=== PATIENT | male | born 1940 | race Caucasian/White ===

== ENCOUNTER → 2016-07-21 | Outpatient (CLI) | payer OTHER | LOC: BHFA 09:15 | PROVIDERS: ATTEND Internal Medicine Cardiovascular Disease | DX: I50.9 Heart failure, unspecified (principal); R06.00 Dyspnea, unspecified; R60.9 Edema, unspecified ==

== ENCOUNTER 2018-02-08 12:58 | Inpatient (IN) | payer OTHER ==
--- NOTE | 2018-02-08 13:17 | EDPHY ---
H & P Stated Complaint: SOB Time Seen by Provider: 02/08/18 13:16 HPI/ROS: CHIEF COMPLAINT: Dyspnea, increasing edema HISTORY OF PRESENT ILLNESS: The patient presents the emergency department with complaints of dyspnea and increasing edema over the past several days. The patient has a history of heart failure and COPD. He typically takes 80 mg of torsemide however has been out of the medication for the past 4 days. The patient denies fever or productive cough. He denies asymmetric calf pain or swelling. The patient denies acute chest pain. The patient is on chronic oxygen typically at 8-10. REVIEW OF SYSTEMS: A comprehensive 10 point review of systems is otherwise negative aside from elements mentioned in the history of present illness. Source: Patient Exam Limitations: No limitations - Personal History Current Tetanus/Diphtheria Vaccine: Yes Current Tetanus Diphtheria and Acellular Pertussis (TDAP): Yes - Medical/Surgical History Hx Asthma: No Hx Chronic Respiratory Disease: Yes Hx Diabetes: No Hx Cardiac Disease: No Hx Renal Disease: No Hx Cirrhosis: No Hx Alcoholism: No Hx HIV/AIDS: No Hx Splenectomy or Spleen Trauma: No Other PMH: HTN, lower back sx, COPD - Social History Smoking Status: Former smoker - Physical Exam Exam: General Appearance: Obese male, mild tachypnea Eyes: Pupils equal and round no pallor or injection ENT, Mouth: Mucous membranes moist Respiratory: Distant breath sounds bilaterally Cardiovascular: Regular rate and rhythm Gastrointestinal: Abdomen is soft and nontender, no masses, bowel sounds normal Neurological: A&O, normal motor function, normal sensory exam, normal cranial nerves Skin: Warm and dry, no rashes Musculoskeletal: Neck is supple nontender Extremities: 3+ pitting edema bilaterally Psychiatric: Patient is oriented X 3, there is no agitation Constitutional: Initial Vital Signs Heart Rate 70 02/08/18 13:06 Respiratory Rate 24 H 02/08/18 13:06 Blood Pressure 156/95 H 02/08/18 13:06 O2 Sat (%) 83 L 02/08/18 13:06 O2 Delivery Mode Oxymizer O2 (L/minute) 6 Allergies/Adverse Reactions: No Known Allergies Allergy (Unverified 04/19/14 11:26) Home Medications: Medication Instructions Recorded Aspirin [Aspirin 81mg (*)] 81 mg PO HS 04/19/14 Naproxen Sodium [Aleve 220 MG (*)] 440 mg PO DAILY PRN 04/19/14 Losartan Potassium [Cozaar 50 mg 50 mg PO DAILY 08/28/15 (*)] Multivitamins [Multivitamin (*)] 1 each PO DAILY 08/28/15 Potassium Cl [Klor-Con 20 meq (*)] 20 meq PO DAILY 08/28/15 Acetaminophen [Tylenol 325mg (*)] 650 mg PO Q4 PRN #0 tab 08/29/15 Torsemide [Demadex] 20 mg PO DAILY #30 tablet 08/29/15 Torsemide [Demadex] 50 mg PO DAILY #0 tablet 08/29/15 Anoro Ellipta 62.5-25 Mcg INH 02/08/18 Medical Decision Making - Diagnostics EKG Interpretation: EKG: Complete interpretation has been separately recorded in the [email or web address] archive. Summary impression: Sinus rhythm, rate 55 Imaging Results: Imaging Impressions Chest X-Ray 02/08/18 13:17 Impression: Mild CHF/fluid overload. Chest/Thorax CTA 02/08/18 14:47 Impression: 1. No evidence of pulmonary thromboembolic disease. 2. Normal caliber atherosclerotic aorta. 3. Mild CHF versus fluid overload superimposed on chronic bronchitis and emphysema. 4. Suspect underlying chronic pulmonary arterial hypertension. 5. Three-vessel calcified coronary plaque. Findings discussed with Emergency Department physician, Curly Mark M.D. , on February 08, 2018 at 1611. E:amm ED Course/Re-evaluation: The patient presents to the ED with fairly significant dyspnea. He has a history of fairly advanced COPD and heart failure. The patient's stop using his diuretics 4 days ago. He is on a very high dose of daily diuretics. The patient presents to the ED with distant breath sounds. Patient received 80 mg of IV Lasix. This resulted in fairly significant diuresis of over 1 L in the ED. Chest x-ray does confirm the presence of volume overload. The patient continues to have fairly symptomatic dyspnea and acute hypoxemia. Additional workup included a D-dimer which was positive. Follow-up included CT pulmonary angiogram which demonstrated no evidence of PE. The re-evaluated patient again at 4:50 p.m. And he continues to have significant dyspnea and hypoxemia. He will require admission to the hospital. The consultation is made with Dr. Black from the hospitalist service at 5:00 p.m.. Differential Diagnosis: Differential diagnosis considered includes atrial fibrillation, atrial flutter, congestive heart failure, pulmonary embolism, pneumonia, COPD exacerbation - Data Points Laboratory Results: Laboratory Results 02/08/18 13:30 02/08/18 13:30 02/08/18 02/08/18 02/08/18 13:36 13:30 13:30 WBC 8.23 10^3/uL 10^3/uL (3.80-9.50) RBC 3.86 10^6/uL L 10^6/uL (4.40-6.38) Hgb 12.4 g/dL L g/dL (13.7-17.5) Hct 38.7 % L % (40.0-51.0) MCV 100.3 fL H fL (81.5-99.8) MCH 32.1 pg pg (27.9-34.1) MCHC 32.0 g/dL L g/dL (32.4-36.7) RDW 14.9 % % (11.5-15.2) Plt Count 308 10^3/uL 10^3/uL (150-400) MPV 9.1 fL fL (8.7-11.7) Neut % (Auto) 72.1 % % (39.3-74.2) Lymph % (Auto) 15.4 % % (15.0-45.0) [place] % (Auto) 8.1 % % (4.5-13.0) Eos % (Auto) 3.3 % % (0.6-7.6) Baso % (Auto) 0.5 % % (0.3-1.7) Nucleat RBC Rel Count 0.0 % % (0.0-0.2) Absolute Neuts (auto) 5.93 10^3/uL 10^3/uL (1.70-6.50) Absolute Lymphs (auto) 1.27 10^3/uL 10^3/uL (1.00-3.00) Absolute Monos (auto) 0.67 10^3/uL 10^3/uL (0.30-0.80) Absolute Eos (auto) 0.27 10^3/uL 10^3/uL (0.03-0.40) Absolute Basos (auto) 0.04 10^3/uL 10^3/uL (0.02-0.10) Absolute Nucleated RBC 0.00 10^3/uL 10^3/uL (0-0.01) Immature Gran % 0.6 % % (0.0-1.1) Immature Gran # 0.05 10^3/uL 10^3/uL (0.00-0.10) D-Dimer Sodium 138 mEq/L mEq/L (135-145) Potassium 4.5 mEq/L mEq/L (3.5-5.2) Chloride 107 mEq/L mEq/L (97-110) Carbon Dioxide 27 mEq/l mEq/l (22-31) Anion Gap 4 mEq/L L mEq/L (6-14) BUN 18 mg/dL mg/dL (7-23) Creatinine 1.3 mg/dL mg/dL (0.7-1.3) Estimated GFR 53 Glucose 95 mg/dL mg/dL (70-100) Calcium 9.4 mg/dL mg/dL (8.5-10.4) POC Troponin I 0.09 ng/mL H ng/mL (0.00-0.08) NT-Pro-B Natriuret Pep 1640 pg/mL H pg/mL (0-450) 02/08/18 11:35 WBC RBC Hgb Hct MCV MCH MCHC RDW Plt Count MPV Neut % (Auto) Lymph % (Auto) [place] % (Auto) Eos % (Auto) Baso % (Auto) Nucleat RBC Rel Count Absolute Neuts (auto) Absolute Lymphs (auto) Absolute Monos (auto) Absolute Eos (auto) Absolute Basos (auto) Absolute Nucleated RBC Immature Gran % Immature Gran # D-Dimer 1.10 ug/mLFEU H ug/mLFEU (0.00-0.50) Sodium Potassium Chloride Carbon Dioxide Anion Gap BUN Creatinine Estimated GFR Glucose Calcium POC Troponin I NT-Pro-B Natriuret Pep Medications Given: Discontinued Medications Albuterol/Ipratropium (Duoneb) 3 ml IH EDNOW ONE Stop: 02/08/18 13:21 Last Admin: 02/08/18 13:31 Dose: 3 ml Furosemide (Lasix Injection) 80 mg IV EDNOW ONE Stop: 02/08/18 13:28 Last Admin: 02/08/18 13:35 Dose: 80 mg Point of Care Test Results: Chemistry 02/08/18 13:36 POC Troponin I 0.09 ng/mL H ng/mL (0.00-0.08) Departure - Departure Disposition: [facility] Inpatient Acute Clinical Impression: Chronic obstructive pulmonary disease with acute exacerbation, Congestive heart failure (CHF) Condition: Fair
[2018-02-08] MEDS ORDERED: IPRATROPIUM/ALBUTEROL 3 ML DEYVIAL IH ONE (13:20)
[2018-02-08] MEDS ORDERED: FUROSEMIDE 100 MG/10 ML VIAL IV ONE (13:27)
[2018-02-08 13:42] LABS: PLATELET COUNT 308 10^3/uL (150-400)
--- NOTE | 2018-02-08 14:15 | CPEKG ---
Test Reason : OPEN Blood Pressure : / mmHG Vent. Rate : 050 BPM Atrial Rate : 050 BPM P-R Int : 148 ms QRS Dur : 102 ms QT Int : 478 ms P-R-T Axes : 070 064 036 degrees QTc Int : 436 ms Sinus rhythm Confirmed by Curly Mark ([id number]) on 02/08/2018 2:15:04 PM Referred By: Confirmed By:Curly Mark
[2018-02-08] MEDS ORDERED: IOPAMIDOL (ISOVUE 370) 100 ML BTL IV ONE (14:52)
[2018-02-08] MEDS ORDERED: ONDANSETRON DISINTEGRATING 4 MG TAB PO PRN (17:12)
[2018-02-08] MEDS ORDERED: ACETAMINOPHEN 325 MG TAB PO PRN (17:12)
[2018-02-08] MEDS ORDERED: ONDANSETRON 4 MG/2 ML VIAL IVP PRN (17:12)
--- NOTE | 2018-02-08 18:22 | HOSPPROG ---
Hospitalist Progress Note Assessment/Plan: Pt seen and examined. Please reference our QA MANAGER's H&P. Pt has a hx of CHF, ran out of diuretics several days ago. Now with volume overload and dyspnea #CHF-E #Dyspnea #Volume overload significant volume overload. On high amounts of diuretics at home agree with QA MANAGER's A&P cont with IV diuretics Cards to see in a.m. cont appropriate home meds Subjective: very swollen. no cp. feels better since Lasix given Objective: Vital Signs Temp Pulse Resp BP Pulse Ox 62 21 H 142/77 H 96 02/08/18 16:35 02/08/18 16:35 02/08/18 16:35 02/08/18 16:43 02/07/18 02/08/18 02/09/18 05:59 05:59 05:59 Output Total 2500 Balance -2500 - Physical Exam Constitutional: no apparent distress Eyes: PERRL Ears, Nose, Mouth, Throat: moist mucous membranes, hearing normal Cardiovascular: regular rate and rhythym, edema Respiratory: no respiratory distress, reduced air movement Gastrointestinal: normoactive bowel sounds Lymph, Heme, Immunologic: No petechiae ICD10 Worksheet Patient Problems: Problems Problem Status Onset Chronic obstructive pulmonary disease with acute exacerbation Acute Congestive heart failure (CHF) Acute Acute respiratory failure Acute Vertigo Acute
--- NOTE | 2018-02-08 19:43 | PDGENHP ---
History and Physical - Chief Complaint Dyspnea, increase edema - History of Present Illness 77 y/o male with history of COPD and CHF presents in CHF exacerbation with dyspnea and increased bilateral lower extremity edema for the last 4 days. He normally takes 80 mg of torasemide but ran out and has not taken this medication in 4 days. Denies chest pains, nausea, fever, chills, dysuria, constipation. No vision changes. Chronically on 8-10L of oxygen at home. CXR show mild CHF versus fluid overload and chest/thorax CTA reveal no pulmonary embolism. EKG SR. He received IV 80 mg Lasix in the emergency room and voided more than 1L of urine but still c/o dyspnea and is unable to wean from the oxymask to NC. He is being admitted for observation, monitoring, and diuresis. Past Medical/Surgical History 1. Obesity 2. HTN 3. COPD 4. CHF 5. Chronic renal insufficiency 6. Edema 7. Hx prostate CA 8. Lower back pain 9. Impotence 10. Laminectomy 11. Radial prostatectomy 12. Vasectomy 13. Tonsillectomy Social 1. Former smoker. Denies illicit drug use. Rarely drinks alcohol. Lives in [place]. History Information - Allergies/Home Medication List Allergies/Adverse Reactions: No Known Allergies Allergy (Unverified 04/19/14 11:26) Home Medications: Aspirin [Aspirin 81mg (*)] 81 mg PO HS 04/19/14 [Last Taken 02/07/18] Naproxen Sodium [Aleve 220 MG (*)] 440 mg PO DAILY 04/19/14 [Last Taken 02/08/18 ] Losartan Potassium [Cozaar 50 mg (*)] 50 mg PO DAILY 08/28/15 [Last Taken ] Multivitamins [Multivitamin (*)] 1 each PO DAILY 08/28/15 [Last Taken 02/07/18] Potassium Cl [Klor-Con 20 meq (*)] 20 meq PO DAILY 08/28/15 [Last Taken 08/28/15 ] Mirtazapine [Remeron] 15 mg PO HS 02/08/18 [Last Taken 02/07/18] Torsemide [Demadex] 80 mg PO DAILY 02/08/18 [Last Taken 02/04/18] Umeclidinium Brm/Vilanterol Tr [Anoro Ellipta 62.5-25 Mcg INH] 1 each IH DAILY 02/08/18 [Last Taken 02/07/18] I have personally reviewed and updated: family history, medical history, social history, surgical history Past Medical History: See HPI list - Surgical History Additional surgical history: See HPI list - Family History Additional family history: Lung neoplasm, DMII, HTN - Social History Smoking Status: Former smoker Alcohol Use: Rarely Drug Use: None Review of Systems Review of Systems: ROS: 10pt was reviewed & negative except for what was stated in HPI & below Constitutional: Reports: no symptoms EENMT: Reports: no symptoms Cardiac: Reports: lightheadedness Respiratory: Reports: cough, shortness of breath Gastrointestinal: Reports: no symptoms Genitourinary: Reports: no symptoms Muscolosketal: Reports: no symptoms Skin: Reports: no symptoms Neurological: Reports: no symptoms Hematologic/Lymphatic: Reports: no symptoms Immunologic/Allergy: Reports: no symptoms Physical Exam Physical Exam: Lab data and imaging reviewed Temp Pulse Resp BP Pulse Ox 36.8 C 53 L 22 H 159/82 H 98 02/08/18 18:46 02/08/18 18:46 02/08/18 18:46 02/08/18 18:46 02/08/18 18:46 O2 (L/minute) 6 Constitutional: no apparent distress, appears nourished, not in pain, obese Eyes: PERRL, anicteric sclera, EOMI Ears, Nose, Mouth, Throat: moist mucous membranes, hearing normal, ears appear normal, no oral mucosal ulcers Cardiovascular: regular rate and rhythym, no murmur, rub, or gallop, edema (3+ pitting) Peripheral Pulses: 1+: dorsalis-pedis (R) (Radial 2+), dorsalis-pedis (L) ( Radial 2+) Respiratory: reduced air movement (Bilateral bases) Gastrointestinal: normoactive bowel sounds (Round, soft abdomen), soft, non- tender abdomen, no palpable masses Genitourinary: no bladder fullness, no bladder tenderness Skin: warm, normal color, no rashes or abrasions, no fluctuance, no induration, No mottled Musculoskeletal: full muscle strength, no muscle tenderness, normal joint ROM, no joint effusions Neurologic: AAOx3, sensation intact bilaterally, CN II-XII Intact Psychiatric: interacting appropriately, not anxious, not encephalopathic, thought process linear Lymph, Heme, Immunologic: no cervical LAD, no supraclavicular LAD Lab Data & Imaging Review 02/08/18 13:30 02/08/18 13:30 WBC 8.23 10^3/uL (3.80-9.50) 02/08/18 13:30 RBC 3.86 10^6/uL (4.40-6.38) L 02/08/18 13:30 Hgb 12.4 g/dL (13.7-17.5) L 02/08/18 13:30 Hct 38.7 % (40.0-51.0) L 02/08/18 13:30 MCV 100.3 fL (81.5-99.8) H 02/08/18 13:30 MCH 32.1 pg (27.9-34.1) 02/08/18 13:30 MCHC 32.0 g/dL (32.4-36.7) L 02/08/18 13:30 RDW 14.9 % (11.5-15.2) 02/08/18 13:30 Plt Count 308 10^3/uL (150-400) 02/08/18 13:30 MPV 9.1 fL (8.7-11.7) 02/08/18 13:30 Neut % (Auto) 72.1 % (39.3-74.2) 02/08/18 13:30 Lymph % (Auto) 15.4 % (15.0-45.0) 02/08/18 13:30 Sac % (Auto) 8.1 % (4.5-13.0) 02/08/18 13:30 Eos % (Auto) 3.3 % (0.6-7.6) 02/08/18 13:30 Baso % (Auto) 0.5 % (0.3-1.7) 02/08/18 13:30 Nucleat RBC Rel Count 0.0 % (0.0-0.2) 02/08/18 13:30 Absolute Neuts (auto) 5.93 10^3/uL (1.70-6.50) 02/08/18 13:30 Absolute Lymphs (auto) 1.27 10^3/uL (1.00-3.00) 02/08/18 13:30 Absolute Monos (auto) 0.67 10^3/uL (0.30-0.80) 02/08/18 13:30 Absolute Eos (auto) 0.27 10^3/uL (0.03-0.40) 02/08/18 13:30 Absolute Basos (auto) 0.04 10^3/uL (0.02-0.10) 02/08/18 13:30 Absolute Nucleated RBC 0.00 10^3/uL (0-0.01) 02/08/18 13:30 Immature Gran % 0.6 % (0.0-1.1) 02/08/18 13:30 Immature Gran # 0.05 10^3/uL (0.00-0.10) 02/08/18 13:30 D-Dimer 1.10 ug/mLFEU (0.00-0.50) H 02/08/18 11:35 Sodium 138 mEq/L (135-145) 02/08/18 13:30 Potassium 4.5 mEq/L (3.5-5.2) 02/08/18 13:30 Chloride 107 mEq/L (97-110) 02/08/18 13:30 Carbon Dioxide 27 mEq/l (22-31) 02/08/18 13:30 Anion Gap 4 mEq/L (6-14) L 02/08/18 13:30 BUN 18 mg/dL (7-23) 02/08/18 13:30 Creatinine 1.3 mg/dL (0.7-1.3) 02/08/18 13:30 Estimated GFR 53 02/08/18 13:30 Glucose 95 mg/dL (70-100) 02/08/18 13:30 Calcium 9.4 mg/dL (8.5-10.4) 02/08/18 13:30 POC Troponin I 0.09 ng/mL (0.00-0.08) H 02/08/18 13:36 NT-Pro-B Natriuret Pep 1640 pg/mL (0-450) H 02/08/18 13:30 Assessment & Plan Plan: 77 y/o male with history of COPD and CHF was unable to take his highly dosed torasemide for the last 4 days. Subsequently, he had increasing dyspnea and edema hence presenting to the emergency room. 1. CHF exacerbation -He already received IV Lasix in the ED. He will receive IV Lasix BID starting tomorrow -Duonebs -Continue oxygenation as needed; will need to attempt to wean down to what he is chronically at home which is 8-10L NC -Initial trop 0.09, recycle trop now and will repeat trop tomorrow -Cards consulted -CBC/CMP tomorrow 2. COPD -Duonebs -Continue oxygenation as needed; will need to attempt to wean down to what he is chronically at home which is 8-10L NC 3. Hypertension -May continue ASA and losartan Diet: Cardiac VTE ppx: SCDs Code: Limited Dispo: Admit to obs
[2018-02-08] MEDS: MIRTAZAPINE 15 MG TAB PO SCH (20:16)
[2018-02-08] MEDS: ASPIRIN 81 MG CHEWABLE TAB PO SCH (20:18)
[2018-02-08] MEDS ORDERED: IPRATROPIUM/ALBUTEROL 3 ML DEYVIAL IH SCH (21:00)
[2018-02-08] MEDS: IPRATROPIUM/ALBUTEROL 3 ML DEYVIAL IH SCH (21:53)
[2018-02-09 03:37] LABS: PLATELET COUNT 266 10^3/uL (150-400)
[2018-02-09] MEDS: IPRATROPIUM/ALBUTEROL 3 ML DEYVIAL IH SCH ×4 (05:33→20:57)
[2018-02-09] MEDS ORDERED: FUROSEMIDE 40 MG/4 ML VIAL IVP SCH (09:00)
[2018-02-09] MEDS ORDERED: POTASSIUM CL 20 MEQ TAB PO ONE ×2 (09:20→17:47)
[2018-02-09] MEDS: FUROSEMIDE 40 MG/4 ML VIAL IVP SCH ×2 (09:22→15:59)
[2018-02-09] MEDS: LOSARTAN POTASSIUM 50 MG TAB PO SCH (09:22)
--- NOTE | 2018-02-09 10:37 | GCON ---
CARDIOLOGY CONSULTATION REFERRING PHYSICIAN: Isaac Black MD INDICATION FOR CARDIOLOGY CONSULTATION: Diastolic CHF exacerbation. HISTORY OF PRESENT ILLNESS: The patient is a 77-year-old male who is known to our practice. He is u sually followed by Dr. Venegas. He has significant past history that includes chronic diastolic heart failure, COPD oxygen dependent, chronic renal insufficiency with baseline creatinine around 1.4, export coordinator jayant venous insufficiency, hypertension, and chronic pulmonary hypertension. Patient reporting he had been in his usual state of health. Approximately 4-5 days ago, he states that his mail-order pharma cy did not send his torsemide, and he had been waiting for order but, unfortunately, he had not taken any of his diuretics for approximately 5 days. He does state, over the last 5 days, he has noticed mild increase in shortness of breath. He has also noted significant increased peripheral edema plus abdominal swelling. Due to feeling his symptoms had worsened and more shortness of breath, he came i [facility] the emergency department for further evaluation. Upon arrival, he did have a chest x-ray done wh ich did note mild CHF. Laboratory studies noted BNP of 164. He did have a mild bumped troponin of 0 .09. D-dimer was done, noted to be 1.10. He did undergo CTA of the chest which noted no evidence of PE, mild CHF, underlying chronic pulmonary artery hypertension, 3-vessel calcified coronary plaque. Electrocardiogram was also done in the emergency department which noted sinus rhythm, normal axis, wi th no significant ST or T wave abnormalities. He was admitted to the hospital services. He was started on IV Lasix. He reports this morning a sig nificant improvement in symptoms but still continues to report worsening SOB, peripheral edema, and s ome orthopnea. He denies any history of chest pain or pressure. Reports no PND, palpitations, light headedness, near syncope, or syncopal events. Reports no symptoms suggestive of TIA or CVA. Reports no recent fevers, chills, night sweats. Reports no bleeding issues. PAST MEDICAL HISTORY: 1. Chronic diastolic heart failure. 2. Hypertension. 3. COPD. 4. Chronic renal insufficiency with baseline creatinine at 1.4. 5. Chronic venous insufficiency. 6. Pulmonary hypertension. 7. Impotency. 8. Previous tobacco abuse. 9. History of prostate cancer. PAST SURGICAL HISTORY: Include: 1. Laminectomy. 2. Radical prostatectomy. 3. Vasectomy. 4. Tonsillectomy. FAMILY HISTORY: The patient reporting mother with history of diabetes, father with history of heart failure. Also reports family history of lung and hypertension. 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 He is a . He has 3 a dult children who are alive and well. Two live in the area. He is a former smoker who quit in 2015. He reports rare alcohol use. Denies any illicit drug use. ALLERGIES: Include no known allergies. HOME MEDICATIONS: Include Remeron 15 mg p.o. h.s., Demadex 80 mg p.o. daily, potassium chloride 20 _ p.o. daily, Aleve 440 mg p.o. daily, multivitamins 1 tablet p.o. daily, Ellipta 6.25/25 mcg inhaled 1 time daily, losartan 50 mg p.o. daily, aspirin 81 mg p.o. h.s. REVIEW OF SYSTEMS: A 10-point review of systems done on patient all negative except as mentioned abo ve. PHYSICAL EXAMINATION: GENERAL APPEARANCE: Medium built, moderately obese male. He is rosalba rt and oriented to person, place, time, and situation. Appears to be in no acute distress at the orquidea e of my examination. VITAL SIGNS: Current vital signs show blood pressure of 147/88, heart rate of 62, sinus rhythm on the monitor. Respirations 14, saturating 91% on 5.5 L per minute of high-flow O2 . Temperature of 36.6 Celsius. HEENT: Head is normocephalic. Lips and tongue are pink and moist w ith no signs of cyanosis. Conjunctivae pink. NECK: Trachea is midline, +2 carotid pulses bilateral ly. No auscultated bruits. JVD 5-6 cm above sternal notch at a 45-degree angle. RESPIRATORY: Lung s are diminished in bases bilaterally. No rhonchi or rales noted. No accessory muscle use. No inte rcostal muscle retraction noted. CARDIAC: Regular rate, regular rhythm. S1, S2, no S3. 1/6 to 2/6 systolic murmur noted along the left sternal border. ABDOMEN: Firm, nontender, no palpable masses. No organomegaly. SKIN: [place], warm, dry, no cyanosis, no clubbing, +2 peripheral edema bilateral l ower extremities to thighs. VASCULAR: +2 carotids bilaterally, +2 radials bilaterally, +1 post tibi al pulses bilaterally. LABORATORY STUDIES: Laboratory studies from today show WBC of 6.77, hemoglobin 11.1, hematocrit of 3 4.3, platelet count of 266. Sodium 140, potassium 3.8, chloride 106, CO2 27, BUN 20, creatinine 1.4, glucose 133, calcium 8.9, magnesium 1.9, total bilirubin 0.3, AST 26, ALT 25, alkaline phosphate 33, troponin 0.035. Note: The patient did have a troponin last evening that peaked at 0.049. D-dimer done on admission was 1.10. ProBNP on admission was 1640. STUDIES: Electrocardiogram as mentioned above. Chest x-ray as mentioned above. CTA of chest as men tioned above. Previous studies noting patient did undergo Cardiolite stress test in 04/2015 showing LVEF of 68% with no ischemia. Echocardiogram done July 2016 showing LVEF of 63% with mild MR and TR, with an estimat ed RVSP of 45 mmHg. ASSESSMENT AND PLAN: 1. Acute on chronic diastolic heart failure: Patient with increased peripheral edema, shortness of breath. He does not weigh himself daily so is uncertain of weight gain. Reporting no chest pain. C TA and chest x-ray suggesting worsening congestive heart failure. Patient admittedly had been off hi s torsemide for at least 4 days, more likely 5. He has been started on intravenous diuresis. He has had good output from Lasix initially and does report improvement in symptoms. Would recommend we co ntinue with IV diuresis for at least the next day. I would like to get an echocardiogram to evaluate his cardiac structure and function. Intakes and outputs, daily weights. Low-sodium intake encourag ed. 2. Elevated troponin: Patient with an indeterminate elevated troponin level up to 0.049. CTA of th e chest did show coronary calcification of all 3 main coronary arteries. Patient reports no history of chest pain or pressure. The patient was noted to have a normal myocardial perfusion imaging stres s test in 2015 with no signs of ischemia or infarction. The patient does have multiple cardiac risk factors (age, hypertension, previous smoker). More , troponin elevation could be due to co ngestive heart failure exacerbation due to flow mismatch. Would recommend patient be further risk an alyzed during this hospitalization prior to discharge by having repeat Lexiscan myocardial perfusion imaging study. 3. Coronary artery disease: He was noted to have coronary calcification off a CT scan yesterday. T his is a new diagnosis for him. As mentioned above, he has had a previous myocardial perfusion imagi ng study done approximately 2-1/2 years ago. He reports no chest pain or pressure. Will get, as men tioned above, echocardiogram to evaluate LV function and would recommend him undergoing myocardial pe rfusion imaging study before discharge. Will continue him on aspirin therapy. I would like him to g et a fasting lipid panel done with consideration of starting him on statin therapy for secondary risk prevention. 4. Chronic obstructive pulmonary disease: Patient with long history of chronic obstructive pulmonar y disease. He currently is on higher dose of home oxygen. His home inhalers have been ordered by [facility], defer med management to them. 5. Hypertension: Patient with history of hypertension. Blood pressure is mildly up today. Will mo nitor closely, with the use of intravenous diuresis. Continued on home dose of losartan. 6. Renal insufficiency: Patient noted to have history of renal insufficiency with baseline creatini ne around 1.4. Mildly up today at 1.4 from yesterday of 1.3 after Lasix dosage. We will need to mon itor closely. We also will monitor his electrolytes with ongoing diuresis. Thank you for this consultation. We will be glad to follow along with you. /[id number]/MODL
--- NOTE | 2018-02-09 12:05 | HOSPPROG ---
Hospitalist Progress Note Assessment/Plan: 77 y/o male with history of COPD and CHF was unable to take his highly dosed torasemide for the last 4 days. Subsequently, he had increasing dyspnea and edema which prompted his admission on 02/08. 1. Acute on Chronic Diastolic CHF exacerbation - CTA and CXR on admission showing fluid overload, off of home Torsemide for 4- 5 days - S/p IV Lasix in ED, continue Lasix 80 mg IV BID - TTE ordered per cardiology - Continue 02 as needed; on chronically at home which is 8-10L NC - Continue to monitor I/O, BMP 2. Hx of CAD, Elevated Troponin on admission - Initial trop 0.09, repeat, 0.049 --> 0.035, in setting of CHF exacerbation - Most reccent MPS 2 years ago, denies chest pain - CTA on admission shows coronary calcification in all 3 coronaries - TTE ordered as above - Cardiology recommending Lexiscan once euvolemic prior to discharge - Lipid panel ordered, consider starting statin for 2ndary prevention - Continue home ASA 3. CKD - Hx of renal insufficiency, baseline Cr around 1.4 - Cr today 1.4 - Continue to monitor Cr/BMP closely while on IV Diuretics, I/O, avoid nephrotoxic agents 4. COPD -Continue home nebulizers -Continue oxygenation as needed; will need to attempt to wean down to what he is chronically at home which is 8-10L NC 5. Hypertension -Continue home Losartan Diet: Cardiac VTE ppx: SCDs Code: Limited Dispo: Pending clinical course Subjective: Patient reports decrease in LE edema and improvement in breathing this morning Objective: Vital Signs Temp Pulse Resp BP Pulse Ox 36.6 C 62 14 147/88 H 91 L 02/09/18 08:00 02/09/18 08:00 02/09/18 08:00 02/09/18 08:00 02/09/18 08:00 Laboratory Results 02/09/18 03:20 02/09/18 03:20 02/08/18 02/09/18 02/10/18 05:59 05:59 05:59 Output Total 5400 Balance -5400 - Physical Exam Constitutional: no apparent distress Eyes: PERRL Ears, Nose, Mouth, Throat: moist mucous membranes Cardiovascular: regular rate and rhythym, edema Respiratory: no respiratory distress, reduced air movement Gastrointestinal: soft, non-tender abdomen Genitourinary: no bladder fullness Skin: warm Neurologic: AAOx3 Psychiatric: interacting appropriately ICD10 Worksheet Patient Problems: Problems Problem Status Onset Chronic obstructive pulmonary disease with acute exacerbation Acute Congestive heart failure (CHF) Acute Acute respiratory failure Acute Vertigo Acute
--- NOTE | 2018-02-09 13:01 | PDMN ---
Medical Necessity Medical necessity: [facility] M190 Heart Failure: 77 yo w/ CHF exacerbation, originally OBS for workup but cont w/ SOB and edema and elevated troponins, cardiology consulted, lexiscan pending. Pt still requiring IV diuretics and high flow oxygen to keep sats>90%. Meets [facility] IP criteria for acute CHF w/ elevated troponins requiring further cardiac workup, increased O2 needs, ongoing IV diuretics and ongoing tele monitoring. Hx obesity HTN, COPD, CHF, chronic renal insufficiency, edema, prostate CA. Change to IP status 02/09/18@ 1219 per MD order.
--- NOTE | 2018-02-09 13:29 | ECHO ---
[email or web address] [address] [address] Main: [phone] Fax: Transthoracic Echocardiogram Name: AURORA PINA MR#: [id number] Study Date: 02/09/2018 Study Time: 11:51 AM Date of : 1940 Age: 77 year(s) Height: 177.8 cm (70 in.) Weight: 112.95 kg (249 lb.) BSA: 2.29 m2 Gender: Male Examination: Echo Indication: CHF excerbation/obesity/HTN/COPD/CHF/edema Image Quality: Fair Contrast: Requested by: Meet Mena BP: / Heart Rate: Rhythm: Indication: CHF excerbation/obesity/HTN/COPD/CHF/edema Procedure Staff Piano Case And Bench Assembler: Arminda Barger RDCS Reading Physician: Gilberto Downing MD Requesting Provider: Conclusions: Normal size left ventricle. No LV hypertrophy. Normal global systolic LV function. The ejection fraction is estimated to be 70-75 %. Grade 1 diastolic dysfunction (abnormal relaxation). Normal RV function. The left atrium is normal in size. The right atrium is normal in size. No pericardial effusion. Measurements: Chambers Valvular Assessment AV/MV Valvular Assessment TV/PV Normal Normal Normal Name Value Range Name Value Range Name Value Range IVSd (2D): 0.9 cm (0.6 cm-1.1 AV Vmax: 1.41 m/s (1 m/s-1.7 cm) m/s) LVDd (2D): 4.8 cm (4.2 cm-5.9 AV meanP mmHg ( - ) cm) MV E Vmax: 0.74 m/s ( - ) LVDs (2D): 3.6 cm (2.1 cm-4 MV A Vmax: 0.86 m/s ( - ) cm) MV E/A: 0.86 ( - ) LVPWd (2D): 0.9 cm (0.6 cm-1 cm) LVEF (BP): 76 % (>=55 %) EF Range: 70-75 % Continued Measurements: Chambers Valvular Assessment AV/MV Name Value Name Value Patient: AURORA DUN: [id number] Study Date: 02/09/2018 Page 1 of 2 11:51 AM LADs: 3.9 cm MV E' Septal: 0.06 m/s LADs Lon.8 cm MV E/E' Septal: 12.30 LA Area: 22.0 cm2 MV E/E' Lateral: 9.50 LA Volume: 64 ml LA Volume Index: 27.9 ml/m2 Additional Vessels Name Value Ao Ascendin.4 cm Findings: Left Ventricle: Normal size left ventricle. No LV hypertrophy. Normal global systolic LV function. The ejection fraction is estimated to be 70-75 %. No regional wall motion abnormality. Grade 1 diastolic dysfunction (abnormal relaxation). Right Ventricle: Normal size right ventricle. Normal RV function. Left Atrium: The left atrium is normal in size. Right Atrium: The right atrium is normal in size. Mitral Valve: The mitral valve is normal in appearance and function. Trivial mitral valve regurgitation. Aortic Valve: Aortic valve is not well visualized. There is no aortic valve regurgitation. No aortic valve stenosis is present. Tricuspid Valve: Tricuspid valve not well visualized. There is no tricuspid valve regurgitation. Pulmonic Valve: Pulmonary valve not well visualized. Aorta: The aorta is normal. Pericardium: No pericardial effusion. There is pericardial fat. (No Signature Object) Patient: AURORA PINA Study Date: 02/09/2018 Page 2 of 2 11:51 AM [id number]
--- NOTE | 2018-02-09 13:30 | ASMTCMCOM ---
CM Note CM Note Notes: CM met with pt and spoke to other providers during rounds. Pt is a 77y/o male with COPD and hx of heart failure. At home he uses 8-10 liters of O2. Pt ran out of medication 3 days prior to admission. Pt has no home care at this time. Referral being sent to [facility] for RN in order to try and prevent risk for further hospitalizations. D/C Plan: Home with [facility] RN Date Signed: 02/09/2018 01:30 PM Electronically Signed By:Joana Rodriguez
--- NOTE | 2018-02-09 14:06 | ASMTCMCOM ---
CM Note CM Note Notes: [facility]. Referrals sent to other home health agencies. Palliative Care consult ordered. Contacted PC team. D/C Plan: Home with home weatherizing worker Date Signed: 02/09/2018 02:05 PM Electronically Signed By:Joana Rodriguez
--- NOTE | 2018-02-09 16:05 | ASMTCMCOM ---
CM Note CM Note Notes: Pt met with Luis Fel[facility] and had a PC consult. He would like PC following d/c. Referrals were made with the request that they contact him after he's returned home. [facility] unable to provide RN due tp pt' living in [place]. Other C's were contacted and several stated that they could see him. One specific C has not been chosen yet. D/C Plan: [facility] RN Date Signed: 02/09/2018 04:04 PM Electronically Signed By:Joana Rodriguez
[2018-02-09] MEDS: ASPIRIN 81 MG CHEWABLE TAB PO SCH (20:12)
[2018-02-09] MEDS: MIRTAZAPINE 15 MG TAB PO SCH (20:12)
[2018-02-10 03:53] LABS: PLATELET COUNT 292 10^3/uL (150-400)
[2018-02-10] MEDS: IPRATROPIUM/ALBUTEROL 3 ML DEYVIAL IH SCH ×4 (05:31→22:54)
[2018-02-10] MEDS ORDERED: POTASSIUM CL 20 MEQ TAB PO ONE (08:17)
--- NOTE | 2018-02-10 08:40 | PDCARPN ---
Cardiology Progress Note Chief Complaint: Continue have shortness of breath. Assessment/Plan: Assessment: 77-year-old male with significant history of chronic diastolic heart failure, hypertension, COPD, chronic renal insufficiency, pulmonary hypertension and previous tobacco abuse. Admitted on 02/09/2018 for increased shortness of breath, and increased peripheral edema. Patient stating to be off of torsemide for 4-5 days, due to running out of medication. BNP on admission was 1640. Noted to have elevated D-dimer, CTA admission showing no evidence of PE, mild CHF, chronic pulmonary artery hypertension, and 3 vessel calcification coronary plaque. Patient noted on upon admission to have mildly elevated troponin of 0.09, peaking at 0.049. Echocardiogram done on 01/11/2000 18 showing normal LV size, normal LV systolic function, with no wall motion abnormalities, diastolic dysfunction grade 1, trivial MR. 02/10/2018: Patient has been on IV diuresis. O>I with greater than 3000 mL out yesterday, mild weight loss,. Reports no chest pain pressure symptoms suggesting of ischemia. Continues cardiac monitoring showing sinus rhythm sinus Humphrey, with no malignant arrhythmias or pauses. Continues to have mild peripheral edema, mild rales noted in bases. Patient states SOB and edema improved. Continues to desat down to the low 80s despite being on oxygen therapy, with exertion. Laboratories today showing creatinine 1.5, fasting lipid panel showing total cholesterol 193, LDL 123, triglycerides 122, HDL 46. Plan: 1. Acute on chronic diastolic heart failure: History of missing torsemide dosage for 4-5 days, on IV diuresis, has had good output, but mild weight loss. Continues to have peripheral edema. Rales noted in bases. Would continue on current dose of IV Lasix, with plans of transition to torsemide tomorrow. Low- sodium intake. Potassium replacement therapy ordered. 2. CAD: Noted coronary calcification office CT scan. Patient reports no history of chest pain or pressure. Mild troponin bump in the setting of heart failure. Most recent MPI study 2 and half years ago showing no signs of ischemia or infarction. At this time, further risk analysis with Sonya MPI study , if possible today. With IV continue on anti-platelet therapy of aspirin. Will start on secondary risk prevention with statin therapy. 3. Hyperlipidemia: LDL 123, patient with subclinical CAD based off of CT scan. [place] goal would be LDL of less than 70. Will start him on atorvastatin at 20 mg p.o. Q.day, plan on repeating fasting lipid and liver panel in 6-8 weeks. 4. Hypertension, blood pressure appears to be fairly well controlled on current dose of IV Lasix and losartan, no changes at this time. 5. Renal insufficiency: History renal insufficiency, with baseline creatinine at 1.4. Mildly up today at 1.5, will continue monitoring closely. 6. COPD: Long history, with hypoxia, on chronic around the clock oxygen. Has been reinstituted on home inhalers. Defer to hospital services for management. 02/10/18 08:37 Subjective: Denies of any chest pressure or pain. Reports continue have shortness of breath with exertion. Denies of any palpitations. Reports no lightheadedness, near-syncope or syncopal events. Reviewed/Discussed With: other (Dr Peter) Objective: Vital Signs (8 Hrs) Temp Pulse Resp BP Pulse Ox 02/10/18 08:00 36.9 C 57 L 18 109/73 95 02/10/18 05:31 59 L 14 96 02/10/18 04:00 36.5 C 56 L 20 134/72 H 96 Intake/Output (24 Hrs) 02/09/18 02/10/18 02/11/18 05:59 05:59 05:59 Intake Total 100 Output Total 1999 Balance -1900 Intake: Oral (ml) 100 Output: Urine (ml) 1999 Urinal 1999 Other: Weight 112.9 kg Result Diagrams: 02/10/18 03:27 02/10/18 03:27 - Physical Exam Constitutional: no apparent distress, obese Ears, Nose, Mouth, Throat: moist mucous membranes Cardiovascular: regular rate and rhythm, systolic murmur (2/6 left sternal border), jugular vein distention (5 cm above sternal notch), pulses symmetric bilat, No carotid bruit Peripheral Pulses: 1+: dorsalis-pedis (R), dorsalis-pedis (L), 2+: carotid (R), carotid (L) Respiratory: no wheezes, other (Mild rales noted in bases bilateral.) Gastrointestinal: normoactive bowel sounds, no masses, other (Firm and round) Skin: warm, No no edema (+1 to 2 peripheral edema bilateral lower extremities to knees) Neurologic: AAOx3 Psychiatric: cooperative, interactive, following commands ICD10 Worksheet Patient Problems: Problems Problem Status Onset chronic disease mgmt/transitional care Acute Acute respiratory failure Acute Vertigo Acute Chronic obstructive pulmonary disease with acute exacerbation Acute Congestive heart failure (CHF) Acute
[2018-02-10] MEDS: LOSARTAN POTASSIUM 50 MG TAB PO SCH (08:46)
[2018-02-10] MEDS: ATORVASTATIN CALCIUM 20 MG TAB PO SCH (08:46)
[2018-02-10] MEDS: FUROSEMIDE 40 MG/4 ML VIAL IVP SCH ×2 (08:47→15:37)
[2018-02-10] MEDS ORDERED: REGADENOSON 0.4 MG/5 ML SYR IVP ONE (09:08)
--- NOTE | 2018-02-10 11:58 | CPR ---
PROCEDURE PERFORMED: Lexiscan injection of Lexiscan MPI study. SUPERVISING VP PUBLISHER DEVELOPMENT: Anamika Theodore MD INDICATION FOR PROCEDURE: CHF exacerbation, known history of CAD, with mild indeterminate troponin b ump. PRE: After obtaining informed consent, patient was placed on electrocardiogram. Initial EKG showing sinus rhythm, normal axis, no significant ST or T-wave abnormalities. Patient reporting no chest pa in, pressure or symptoms suggesting of ischemia. The patient's initial blood pressure was 112/66, sa turation 96% on 5 L nasal cannula. INJECTION: Patient was given Lexiscan slow IV push, followed by nuclear isotope. The patient's hear t rate did increase up to 73 beats per minute within 2 minutes of injection, with reported symptoms o f shortness of breath, saturation remained stable at 99%, and no significant change in blood pressure at 116/71. Within 3 minutes, the patient was given caffeinated beverage, and within 5 minutes post injection, symptoms all subsided. No significant EKG changes noted with Lexiscan injection. Final b lood pressure of 112/66, saturation 97%. The patient was taken down to Nuclear Medicine for post-str ess imaging. IMPRESSION: A 77-year-old male with newly found coronary artery disease based off a CT scan, for ralph stolic congestive heart failure exacerbation, noted to have indeterminate troponin levels on admissio n. Underwent Lexiscan MPI study. Had no chest pain or pressure. Did report increased shortness of breath with injection which subsided with caffeinated beverage, within 5 minutes. Vital signs stable throughout testing, no significant EKG changes. Normal arrhythmias. Stress imaging pending. /[id number]/MODL
--- NOTE | 2018-02-10 12:49 | HOSPPROG ---
Hospitalist Progress Note Assessment/Plan: 77 y/o male with history of COPD and CHF was unable to take his highly dosed torasemide for the last 4 days. Subsequently, he had increasing dyspnea and edema which prompted his admission on 02/08. 1. Acute on Chronic Diastolic CHF exacerbation - CTA and CXR on admission showing fluid overload, off of home Torsemide for 4- 5 days - S/p IV Lasix in ED, continue Lasix 80 mg IV BID - Continue 02 as needed; on chronically at home which is 8-10L NC - Continue to monitor I/O, BMP 2. Hx of CAD, Elevated Troponin on admission - Initial trop 0.09, repeat, 0.049 --> 0.035, in setting of CHF exacerbation - Most reccent MPS 2 years ago, denies chest pain - CTA on admission shows coronary calcification in all 3 coronaries - TTE ordered as above - Cardiology recommending Lexiscan, ordered for today - Started on Atorvastatin 20 mg qd - Continue home ASA 3. CKD - Hx of renal insufficiency, baseline Cr around 1.4 - Cr today 1.5 - Continue to monitor Cr/BMP closely while on IV Diuretics, I/O, avoid nephrotoxic agents 4. COPD -Continue home nebulizers -Continue oxygenation as needed; will need to attempt to wean down to what he is chronically at home which is 8-10L NC 5. Hypertension -Continue home Losartan Diet: Cardiac VTE ppx: SCDs Code: Limited Dispo: Pending clinical course Subjective: Patient reports improvement in breathing this morning Objective: Vital Signs Temp Pulse Resp BP Pulse Ox 36.8 C 71 18 137/82 H 89 L 02/10/18 11:55 02/10/18 11:55 02/10/18 11:55 02/10/18 11:55 02/10/18 11:55 Laboratory Results 02/10/18 03:27 02/10/18 03:27 02/09/18 02/10/18 02/11/18 05:59 05:59 05:59 Intake Total 100 Output Total 1999 Balance -190 - Physical Exam Constitutional: chronically ill appearing Eyes: PERRL Ears, Nose, Mouth, Throat: moist mucous membranes Cardiovascular: regular rate and rhythym Respiratory: no respiratory distress, reduced air movement Gastrointestinal: soft, non-tender abdomen Skin: warm Neurologic: AAOx3 Psychiatric: interacting appropriately ICD10 Worksheet Patient Problems: Problems Problem Status Onset Chronic obstructive pulmonary disease with acute exacerbation Acute Congestive heart failure (CHF) Acute chronic disease mgmt/transitional care Acute Acute respiratory failure Acute Vertigo Acute
[2018-02-10] MEDS: ASPIRIN 81 MG CHEWABLE TAB PO SCH (21:14)
[2018-02-10] MEDS: MIRTAZAPINE 15 MG TAB PO SCH (21:14)
[2018-02-11] MEDS: IPRATROPIUM/ALBUTEROL 3 ML DEYVIAL IH SCH ×4 (05:47→21:03)
[2018-02-11] MEDS: TORSEMIDE 20 MG TAB PO SCH (09:16)
[2018-02-11] MEDS: ATORVASTATIN CALCIUM 20 MG TAB PO SCH (09:18)
[2018-02-11] MEDS: LOSARTAN POTASSIUM 50 MG TAB PO SCH (09:18)
--- NOTE | 2018-02-11 11:08 | SOAPPROG ---
[facility] Progress Note Assessment/Plan: 1. Acute on chronic diastolic heart failure - Secondary to missing torsemide x 4 days. Weight down 5 KG with IV diuresis. Edema close to baseline. --> Transition to PO torsemide today. If weight stable to reduced would DC home 02/12. 2. CAD - Patient has a history of CAD by coronary artery calcifications. He had a mild troponin bump in the setting of heart failure. He denies symptoms of angina. Myocardial perfusion imaging with no evidence of ischemia or infarction. --> Continue asa, losartan, and atorvastatin. --> No BB secondary to lung disease. 3. Hyperlipidemia - Patients LDL is 123. His goal is less than 70 given CAD. He was started on atorvastatin this visit. --> FLP and LFTs in 3 months. 4. Hypertension - Well controlled. --> Continue current therapy. 5. Renal insufficiency - Patients cr is 1.6 with diuresis. His baseline cr is 1.4. --> Repeat chem 7 in am to evaluate for progression 6. COPD Subjective: No chest pain No orthopnea or PND edema improved limited ambulation cr up today Objective: Vital Signs Temp Pulse Resp BP Pulse Ox 36.5 C 56 L 10 L 116/75 95 02/11/18 07:47 02/11/18 07:47 02/11/18 07:47 02/11/18 07:47 02/11/18 07:47 Laboratory Results 02/10/18 03:27 02/11/18 03:12 02/10/18 02/11/18 02/12/18 05:59 05:59 05:59 Intake Total 100 1650 Output Total 1999 2200 150 Balance -1900 -550 -150 Physical Exam - Physical Exam General Appearance: alert, no apparent distress Respiratory: lungs clear Cardiac/Chest: regular rate, rhythm, systolic murmur Abdomen: non-tender, soft Extremities: pedal edema Neuro/Psych: alert, oriented x 3 ICD10 Worksheet Patient Problems: Problems Problem Status Onset Chronic obstructive pulmonary disease with acute exacerbation Acute Congestive heart failure (CHF) Acute chronic disease mgmt/transitional care Acute Acute respiratory failure Acute Vertigo Acute
--- NOTE | 2018-02-11 12:54 | HOSPPROG ---
Hospitalist Progress Note Assessment/Plan: 77 y/o male with history of COPD and CHF was unable to take his highly dosed torasemide for the last 4 days. Subsequently, he had increasing dyspnea and edema which prompted his admission on 02/08. 1. Acute on Chronic Diastolic CHF exacerbation - CTA and CXR on admission showing fluid overload, off of home Torsemide for 4- 5 days - S/p IV Lasix 80 mg IV BID, plan to transition to home 80 mg Torsemide qd today - If weight and output remains stable overnight will d/c tomorrow - Continue 02 as needed; on chronically at home which is 8-10L NC - Continue to monitor I/O, BMP 2. Hx of CAD, Elevated Troponin on admission - Initial trop 0.09, repeat, 0.049 --> 0.035, in setting of CHF exacerbation - Most reccent MPS 2 years ago, denies chest pain - CTA on admission shows coronary calcification in all 3 coronaries - TTE ordered as above - Cardiology recommending Lexiscan, ordered for today - Started on Atorvastatin 20 mg qd - Continue home ASA 3. CKD - Hx of renal insufficiency, baseline Cr around 1.4 - Cr today 1.6 - Continue to monitor Cr/BMP closely while on Diuretics, I/O, avoid nephrotoxic agents 4. COPD -Continue home nebulizers -Continue oxygenation as needed; will need to attempt to wean down to what he is chronically at home which is 8-10L NC 5. Hypertension -Continue home Losartan Diet: Cardiac VTE ppx: SCDs Code: Limited Dispo: Pending clinical course Subjective: Patient reports feeling overall well this morning Objective: Vital Signs Temp Pulse Resp BP Pulse Ox 36.6 C 69 16 98/63 L 95 02/11/18 12:01 02/11/18 12:21 02/11/18 12:21 02/11/18 12:01 02/11/18 12:21 Laboratory Results 02/10/18 03:27 02/11/18 03:12 02/10/18 02/11/18 02/12/18 05:59 05:59 05:59 Intake Total 100 1650 Output Total 1999 2200 150 Balance -1900 -550 -150 - Physical Exam Constitutional: chronically ill appearing Eyes: PERRL Ears, Nose, Mouth, Throat: moist mucous membranes Cardiovascular: regular rate and rhythym, No edema Respiratory: no respiratory distress Skin: warm Neurologic: AAOx3 Psychiatric: interacting appropriately ICD10 Worksheet Patient Problems: Problems Problem Status Onset Chronic obstructive pulmonary disease with acute exacerbation Acute Congestive heart failure (CHF) Acute chronic disease mgmt/transitional care Acute Acute respiratory failure Acute Vertigo Acute
--- NOTE | 2018-02-11 14:23 | ASMTCMCOM ---
CM Note CM Note Notes: CM spoke with pt. Agreeable to be discharged home with [facility]. Pt understands both will contact him after discharge. Pt reports he will also continue with Pulmonary Rehab. Pt reorts no other concerns. No CM needs identified. Family to transport at discharge. Pt lives with daughter in law, son is in stationed out of state. Plan: [facility]. Date Signed: 02/11/2018 02:22 PM Electronically Signed By:ERROL Akins
[2018-02-11] MEDS: ASPIRIN 81 MG CHEWABLE TAB PO SCH (21:44)
[2018-02-11] MEDS: MIRTAZAPINE 15 MG TAB PO SCH (21:44)
[2018-02-12] MEDS: IPRATROPIUM/ALBUTEROL 3 ML DEYVIAL IH SCH ×2 (05:39→11:10)
[2018-02-12] MEDS: TORSEMIDE 20 MG TAB PO SCH ×2 (09:14→10:10)
[2018-02-12] MEDS: LOSARTAN POTASSIUM 50 MG TAB PO SCH (09:14)
[2018-02-12] MEDS: ATORVASTATIN CALCIUM 20 MG TAB PO SCH (09:14)
--- NOTE | 2018-02-12 10:18 | PDCARPN ---
Cardiology Progress Note Chief Complaint: SOB Assessment/Plan: Assessment: The patient is a 77 y/o M with a history of chronic DCHF, CAD, HLP, and HTN who was admitted with acute CHF. He ran out of Torsemide for 4 days prior to admission. He is back to baseline and transitioned to PO Demadex yesterday. He also has CRI with a baseline Cr of 1.4. He is currently 1.7. His SOB has improved and edema resolved. Plan: 1. acute on chronic DCHF- secondary to missing 4 days of Torsemide. He is back to baseline. Reduce Torsemide to 60mg daily and repeat a BMP and BNP prior to follow up visit with Dr. Venegas on 02/15 at 1PM. Daily weights and low sodium diet. 2. CAD- by EBCT scan. He had a mild troponin bump but denies symptoms of angina and a nuclear stress test was negative for ischemia. Continue medical management of his CAD with Atorvastatin, Asp, and Losartan 3. HLP- Atorvastatin started this visit. 4. CRI- currently 1.7 baseline 1.4. Repeat BMP on 02/15. Ok to d/c home from a cardiac standpoint. He is scheduled to follow up with Dr. Venegas on 02/15. 02/12/18 10:11 02/12/18 10:19 Subjective: His SOB is back to baseline. He denies any further edema. He did have a fall yesterday while shaving. He lost his balance. He denies any presyncope, syncope, or dizziness. Objective: Vital Signs (8 Hrs) Temp Pulse Resp BP Pulse Ox 02/12/18 08:00 36.7 C 62 16 111/59 L 96 02/12/18 05:22 36.8 C 58 L 14 111/59 L 94 Intake/Output (24 Hrs) 02/11/18 02/12/18 02/13/18 05:59 05:59 05:59 Intake Total 1650 200 Output Total 2200 1550 350 Balance -550 -1350 -350 Intake: Oral (ml) 1650 200 Output: Urine (ml) 2200 1550 350 Urinal 2200 1550 350 Other: Weight 107.8 kg Number of Stools Urinal 1 Result Diagrams: 02/10/18 03:27 02/12/18 03:00 Telemetry: NSR - Physical Exam Constitutional: no apparent distress Ears, Nose, Mouth, Throat: moist mucous membranes Cardiovascular: regular rate and rhythm Respiratory: clear to auscultate bilat Skin: no edema Neurologic: AAOx3 ICD10 Worksheet Patient Problems: Problems Problem Status Onset Chronic obstructive pulmonary disease with acute exacerbation Acute Congestive heart failure (CHF) Acute chronic disease mgmt/transitional care Acute Acute respiratory failure Acute Vertigo Acute
--- NOTE | 2018-02-12 12:05 | ASMTLACE ---
LACE Length of stay for Answers: 4-6 days current admission Comorbidities - select Answers: Chronic pulmonary disease all that apply Coronary Artery Disease # of Emergency department Answers: 1-2 visits in the last 6 months Score: 9 Date Signed: 02/12/2018 12:05 PM Electronically Signed By:Basilia Bernal RN
[2018-02-12 12:18] VITALS: BP 126/72
--- NOTE | 2018-02-12 12:47 | PDIAF ---
- Diagnosis Diagnosis: CHF Code Status: Limited Resuscitation - Medication Management Discharge Medications: electronically signed and located in the Home Medication List. - Orders Services needed: Registered Nurse, Physical Therapy, Occupational Therapy Additional Instructions: Please have labs drawn prior to your office visit with Dr. Venegas. Check your weight daily and please call our office if you gain 3 pounds in one day or 4 pounds in two days. - Follow Up Care Current Providers and Referrals: Gonzalo Venegas MD [Medical Doctor] - 02/15/18 1:00 pm (Please arrive 15 minutes prior to your scheduled appointment time.) NONE *PRIMARY CARE P,. [Unknown] - As per Instructions
--- NOTE | 2018-02-12 13:00 | ASMTDCNOTE ---
Case Management Discharge Discharge Order Complete? Answers: Yes Patient to Obtain Answers: Independently Medications Transportation Arranged Answers: Family/Friends Faxed Final Orders Answers: Yes Discharge Comments Notes: Patient discharged to home with his DIL. [facility] will follow - orders sent to both agencies. Date Signed: 02/12/2018 12:55 PM Electronically Signed By:Basilia Bernal RN
--- NOTE | 2018-02-12 16:32 | PDDCSUM ---
Discharge Summary Discharge Summary: Date of Admission: 02/08/2018 Date of Discharge: 02/11/2018 Consults: Cardiology Procedures: TTE, Lexiscan Followup: Cardiology Hospital Course Problem List: 77 y/o male with history of COPD and CHF was unable to take his highly dosed torasemide for the last 4 days. Subsequently, he had increasing dyspnea and edema which prompted his admission on 02/08. 1. Acute on Chronic Diastolic CHF exacerbation - CTA and CXR on admission showing fluid overload, off of home Torsemide for 4- 5 days - S/p IV Lasix 80 mg IV BID, transitioned back to home Torsemide, however dose was decreased from 80 mg qd to 60 mg qd given increasing BUN/Cr on day of discharge - Continue 02 as needed; on chronically at home which is 8-10L NC - Continue to monitor BMP (has f/u with Dr. Venegas) 2. Hx of CAD, Elevated Troponin on admission - Initial trop 0.09, repeat, 0.049 --> 0.035, in setting of CHF exacerbation - Most recent MPS 2 years ago, denies chest pain - CTA on admission shows coronary calcification in all 3 coronaries - Cardiology recommending Lexiscan, performed during hospitalization without any ischemia noted - Started on Atorvastatin 20 mg qd, continue - Continue home ASA 3. CKD - Hx of renal insufficiency, baseline Cr around 1.4 - Cr today 1.7 - Continue to monitor Cr/BMP after discharge 4. COPD -Continue home nebulizers -Continue oxygenation as needed 5. Hypertension -Continue home Losartan Time spent on discharge was >35 minutes with >50% of time spent on patient education and counseling.
--- NOTE | 2018-02-13 13:14 | ASDISCHSUM ---
Discharge Information Plan Status:Home with Home Health Medically Cleared to Leave: Discharge Date:02/12/2018 04:23 PM D/C Disposition: ADT D/C Disposition:Home, Routine, Self-Care Projected Discharge Date:02/12/2018 11:00 AM Transportation at D/C: Discharge Delay Reason: Follow-Up Date:02/12/2018 11:00 AM Discharge Slot: Final Diagnosis: Placement Information Referral Type:*Home Health Care Services Referral ID:[id number] Provider Name:[facility] Address 1:[address] Address 2: City:[place] Selection Factors: State:[place] Referral Type:Palliative Care Referral ID:[id number] Provider Name:[facility] Address 1:[address] Phone Number: Address 2: Fax Number: [facility]:[place] Selection Factors: State:[place] Patient Contact Information Contact Name:RASTA Relationship:Son Address: City:[place] Alternate Phone: State/Zip Code:[place] Email: Financial Information Financial Class:Medicare Primary Plan Desc:MEDICARE INPATIENT Primary Plan Number:[id number] Secondary Plan Desc:JEFFERY QUEZADA PPO Secondary Plan Number:[id number] Assessment Information LACE LACE Length of stay for Answers: 4-6 days current admission Comorbidities - select Answers: Chronic pulmonary disease all that apply Coronary Artery Disease # of Emergency department Answers: 1-2 visits in the last 6 months Score: 9 Date Signed: 02/12/2018 12:05 PM Electronically Signed By:Basilia Bernal RN [facility] CM Progress Note CM Note CM Note Notes: CM met with pt and spoke to other providers during rounds. Pt is a 77y/o male with COPD and hx of heart failure. At home he uses 8-10 liters of O2. Pt ran out of medication 3 days prior to admission. Pt has no home care at this time. Referral being sent to [facility] for RN in order to try and prevent risk for further hospitalizations. D/C Plan: Home with HC RN Date Signed: 02/09/2018 01:30 PM Electronically Signed By:Joana Rodriguez [facility] Progress Note CM Note CM Note Notes: [facility] does not service [facility]. Referrals sent to other home health agencies. Palliative Care consult ordered. Contacted PC team. D/C Plan: Home with county home demonstrator Date Signed: 02/09/2018 02:05 PM Electronically Signed By:Joana Rodriguez [facility] CM Progress Note CM Note CM Note Notes: Pt met with Luis Felipe and had a PC consult. He would like PC following d/c. Referrals were made with the request that they contact him after he's returned home. [facility] unable to provide RN due tp pt' living in [place]. Other [facility]'s were contacted and several stated that they could see him. One specific [facility] has not been chosen yet. D/C Plan: HHC RN Date Signed: 02/09/2018 04:04 PM Electronically Signed By:Joana Rodriguez [facility] CM Progress Note CM Note CM Note Notes: CM spoke with pt. Agreeable to be discharged home with [facility]. Pt understands both will contact him after discharge. Pt reports he will also continue with Pulmonary Rehab. Pt reorts no other concerns. No CM needs identified. Family to transport at discharge. Pt lives with daughter in law, son is in stationed out of state. Plan: [facility] and [facility]. Date Signed: 02/11/2018 02:22 PM Electronically Signed By:ERROL Akins Case Management Discharge Plan Note Case Management Discharge Discharge Order Complete? Answers: Yes Patient to Obtain Answers: Independently Medications Transportation Arranged Answers: Family/Friends Faxed Final Orders Answers: Yes Discharge Comments Notes: Patient discharged to home with his DIL. [facility] will follow - orders sent to both agencies. Date Signed: 02/12/2018 12:55 PM Electronically Signed By:Basilia Bernal RN Intervention Information Intervention Type:*IM-Signed Date of Service:02/12/2018 11:09 AM Patient Type:Inpatient Staff Member:Viridiana Shukla Hours: Discipline: Severity: Comment:
== END 2018-02-12 16:23 | disposition home health service (06) | DRG 291 ==
LOC: F2W 18:30 → OBSVTOIN 02-09 12:19
PROVIDERS: ADMIT Family Medicine; ATTEND Internal Medicine
DX: I13.0 Hypertensive heart and chronic kidney disease with heart failure and stage 1 through stage 4 chronic kidney disease, or unspecified chronic kidney disease (principal); I50.33 Acute on chronic diastolic (congestive) heart failure; T50.2X6A Underdosing of carbonic-anhydrase inhibitors, benzothiadiazides and other diuretics, initial encounter; I25.10 Atherosclerotic heart disease of native coronary artery without angina pectoris; J44.9 Chronic obstructive pulmonary disease, unspecified; Z87.891 Personal history of nicotine dependence; Z99.81 Dependence on supplemental oxygen; N18.9 Chronic kidney disease, unspecified; E66.09 Other obesity due to excess calories; Z68.34 Body mass index [BMI] 34.0-34.9, adult; E78.5 Hyperlipidemia, unspecified; Z85.46 Personal history of malignant neoplasm of prostate; Z23 Encounter for immunization
CPT/HCPCS: 84484-ER; 96374; 97116-GP; 97162-GP; 97166-GO; 97530-GO; 97530-GP; 97535-GO; A9500; G0008; G0378; G8978-GP-CI; G8978-GP-CJ; G8979-GP-CI; G8980-GP-CI; G8987-GO-CJ; G8988-GO-CI; J1940; J2785; Q9967